=== PATIENT | male | born 1980 | race Caucasian/White ===

== ENCOUNTER → 2018-09-05 | Outpatient (CLI) | payer BC ==
[2018-09-05 07:44] LABS: Basophils # (A) 0.1 k/uL (0-0.2); Basophils % (A) 1 %; Eosinophils # (A) 0.3 k/uL (0-0.7); Eosinophils % (A) 3 %; HCT 44.4 % (39.0-53.0); HGB 15.3 gm/dL (13.0-17.5); Lymphocytes % (A) 16 %; MCH 32.4 pg (25.0-35.0); MCHC 34.5 g/dL (31.0-37.0); MCV 93.9 fL (80.0-100.0); Mean Platelet Volume 7.2; Monocytes # (A) 0.6 k/uL (0-1.0); Monocytes % (A) 5 %; Neutrophils # (A) 9.2 k/uL (1.3-7.7); Neutrophils % (A) 74 %; Platelet Count 232 k/uL (150-450); RBC 4.72 m/uL (4.30-5.90); RDW 12.6 % (11.5-15.5); WBC 12.3 k/uL (3.8-10.6)
[2018-09-05 08:58] LABS: ALT 65 U/L (21-72); AST 40 U/L (17-59); Albumin 4.8 g/dL (3.5-5.0); Alkaline Phosphatase 126 U/L (38-126); Anion Gap 8 mmol/L; Blood Urea Nitrogen 15 mg/dL (9-20); C Reactive Protein <5.0 mg/L (<10.0); Calcium 10.3 mg/dL (8.4-10.2); Carbon Dioxide 25 mmol/L (22-30); Chloride 107 mmol/L (98-107); Cholesterol 270 mg/dL (<200); Creatine Kinase 50 U/L (55-170); Glucose 100 mg/dL (74-99); HDL Cholesterol 42 mg/dL (40-60); LDL Cholesterol,Calculated 161 mg/dL (0-99); Magnesium 2.1 mg/dL (1.6-2.3); Potassium 4.6 mmol/L (3.5-5.1); Sodium 140 mmol/L (137-145); Total Bilirubin 0.7 mg/dL (0.2-1.3); Total Protein 7.5 g/dL (6.3-8.2); Triglycerides 334 mg/dL (<150)
[2018-09-05 09:12] LABS: T4, Free (Free Thyroxine) 0.94 ng/dL (0.78-2.19)
[2018-09-05 11:26] LABS: Hemoglobin A1C 4.7 % (4.0-6.0)
[2018-09-05 12:08] LABS: Erythrocyte Sedimentation Rate 6 mm/hr (0-15)
== END | disposition home or self-care (01) ==
LOC: LABWHC1 06:51
PROVIDERS: ATTEND Internal Medicine
DX: E78.5 Hyperlipidemia, unspecified (principal); I10 Essential (primary) hypertension; E55.9 Vitamin D deficiency, unspecified; D64.9 Anemia, unspecified; E11.9 Type 2 diabetes mellitus without complications
CPT/HCPCS: 36415; 80053; 80061; 82306; 82550; 83036; 83735; 84439; 84443; 85025; 85652; 86140

== ENCOUNTER → 2019-05-09 | Outpatient (CLI) | payer OTHER ==
--- NOTE | 2019-05-10 11:38 | US ---
EXAMINATION TYPE: US axilla RT DATE OF EXAM: 05/09/2019 COMPARISON: NONE CLINICAL HISTORY: R22.9 LUMP RT AXILLA. Patient states he has a hx of palpable in right right axilla with drainage. Patient states lump came back x 1 year ago, sometimes changing in size and draining. Area of palpable scanned. Superficial complex lesion seen with vascular flow - 1.5 x 2.2 x 0.7 cm. Contralateral images taken. IMPRESSION: Complex lesion noted at the site of clinical concern. Infected collection is not excluded .
== END | disposition home or self-care (01) ==
LOC: RADUSWWP 16:31
PROVIDERS: ATTEND Internal Medicine
DX: I99.8 Other disorder of circulatory system (principal)

== ENCOUNTER 2021-05-30 16:07 | Observation (INO) | payer OTHER ==
[2021-05-30] MEDS ORDERED: METOCLOPRAMIDE 5 MG/ML 2 ML VIAL IVP STA (16:46)
[2021-05-30] MEDS ORDERED: SODIUM CHLORIDE 0.9% 2,000 ML IV STA (16:46)
[2021-05-30] MEDS ORDERED: PANTOPRAZOLE 40 MG/10 ML VIAL IVP STA (16:46)
[2021-05-30 17:09] LABS: Basophils # (A) 0.1 k/uL (0-0.2); Basophils % (A) 1 %; Eosinophils # (A) 0.3 k/uL (0-0.7); Eosinophils % (A) 2 %; HCT 43.5 % (39.0-53.0); HGB 15.7 gm/dL (13.0-17.5); Lymphocytes # (A) 1.9 k/uL (1.0-4.8); Lymphocytes % (A) 17 %; MCH 32.8 pg (25.0-35.0); MCV 91.2 fL (80.0-100.0); Mean Platelet Volume 7.3; Monocytes # (A) 0.6 k/uL (0-1.0); Monocytes % (A) 5 %; Neutrophils # (A) 8.5 k/uL (1.3-7.7); Neutrophils % (A) 74 %; Platelet Count 222 k/uL (150-450); RBC 4.77 m/uL (4.30-5.90); RDW 12.4 % (11.5-15.5); WBC 11.5 k/uL (3.8-10.6)
[2021-05-30 17:23] LABS: ALT 40 U/L (4-49); AST 28 U/L (17-59); African American GFR (CKD) >90 (>60 ml/min/1.73 sqM); Albumin 4.5 g/dL (3.5-5.0); Alkaline Phosphatase 125 U/L (38-126); Amylase 68 U/L (30-110); Anion Gap 10 mmol/L; Blood Urea Nitrogen 17 mg/dL (9-20); Carbon Dioxide 26 mmol/L (22-30); Chloride 105 mmol/L (98-107); Glucose 98 mg/dL (74-99); Lipase 54 U/L (23-300); Non-African American GFR(CKD) >90 (>60 ml/min/1.73 sqM); Potassium 3.9 mmol/L (3.5-5.1); Sodium 141 mmol/L (137-145); Total Bilirubin 0.5 mg/dL (0.2-1.3); Total Protein 6.9 g/dL (6.3-8.2)
[2021-05-30 17:24] LABS: Appearance,Urine Clear (Clear); Bilirubin,Urine Negative (Negative); Blood,Urine Negative (Negative); Color,Urine Yellow; Glucose,Urine (UA) Negative (Negative); Ketones,Urine Negative (Negative); Leukocyte Esterase,Urine Negative (Negative); Nitrite,Urine Negative (Negative); Protein,Urine Trace (Negative); Specific Gravity,Urine 1.026 (1.001-1.035); Urobilinogen,Urine <2.0 mg/dL (<2.0)
--- NOTE | 2021-05-30 17:45 | ED ---
Abdominal Pain HPI - General Chief Complaint: Abdominal Pain Stated Complaint: Abd Pain Time Seen by Provider: 05/30/21 16:27 Source: patient, RN notes reviewed Mode of arrival: ambulatory Limitations: no limitations - History of Present Illness Initial Comments: This a 41-year-old male presents emergency Department with chief complaint of abdominal pain, nausea vomiting diarrhea. Patient states this is approximate day 7 of symptoms. Patient states that he has at least 6-8 episodes daily of this watery diarrhea. Patient states that has progressively gotten worse. Appears or chills he states he just feels off. No prior GI issues other than had distal esophageal stricture. Patient states he did have a dilation. No mild hematochezia denies any sick contacts no chest pain does admit to increased heartburn issues. - Related Data Allergies Allergy/AdvReac Type Severity Reaction Status Date / Time No Known Allergies Allergy Verified 05/30/21 16:25 Review of Systems ROS Statement: Those systems with pertinent positive or pertinent negative responses have been documented in the HPI. ROS Other: All systems not noted in ROS Statement are negative. Past Medical History Past Medical History: GERD/Reflux History of Any Multi-Drug Resistant Organisms: None Reported Past Surgical History: No Surgical Hx Reported Past Psychological History: No Psychological Hx Reported Smoking Status: Current every day smoker Past Alcohol Use History: Daily Past Drug Use History: Marijuana General Exam Limitations: no limitations General appearance: alert, in no apparent distress Head exam: Present: atraumatic, normocephalic, normal inspection Neck exam: Present: normal inspection. Absent: tenderness, meningismus, lymphadenopathy Respiratory exam: Present: normal lung sounds bilaterally. Absent: respiratory distress, wheezes, rales, rhonchi, stridor Cardiovascular Exam: Present: regular rate, normal rhythm, normal heart sounds. Absent: systolic murmur, diastolic murmur, rubs, gallop, clicks GI/Abdominal exam: Present: soft, tenderness, normal bowel sounds. Absent: distended, guarding, rebound, rigid Back exam: Absent: CVA tenderness (R), CVA tenderness (L) Neurological exam: Present: alert Skin exam: Present: warm, dry, intact, normal color. Absent: rash Course Vital Signs 05/30/21 16:21 Temperature 99.0 F Pulse Rate 74 Respiratory 20 Rate Blood Pressure 136/87 O2 Sat by Pulse 98 Oximetry Medical Decision Making - Medical Decision Making CT shows evidence of acute appendicitis. Patient CT shows evidence of possible rupture case discussed with Dr. Graham patient be admitted on IV antibiotics And by mouth. - Lab Data Result diagrams: 05/30/21 16:56 05/30/21 16:56 Lab Results 05/30/21 05/30/21 05/30/21 Range/Units 16:56 16:56 16:56 WBC 11.5 H (3.8-10.6) k/uL RBC 4.77 (4.30-5.90) m/uL Hgb 15.7 (13.0-17.5) gm/dL Hct 43.5 (39.0-53.0) % MCV 91.2 (80.0-100.0) fL MCH 32.8 (25.0-35.0) pg MCHC 36.0 (31.0-37.0) g/dL RDW 12.4 (11.5-15.5) % Plt Count 222 (150-450) k/uL MPV 7.3 Neutrophils % 74 % Lymphocytes % 17 % Monocytes % 5 % Eosinophils % 2 % Basophils % 1 % Neutrophils # 8.5 H (1.3-7.7) k/uL Lymphocytes # 1.9 (1.0-4.8) k/uL Monocytes # 0.6 (0-1.0) k/uL Eosinophils # 0.3 (0-0.7) k/uL Basophils # 0.1 (0-0.2) k/uL Sodium 141 (137-145) mmol/L Potassium 3.9 (3.5-5.1) mmol/L Chloride 105 (98-107) mmol/L Carbon Dioxide 26 (22-30) mmol/L Anion Gap 10 mmol/L BUN 17 (9-20) mg/dL Creatinine 0.75 (0.66-1.25) mg/dL Est GFR (CKD-EPI)AfAm >90 (>60 ml/min/1.73 sqM) Est GFR (CKD-EPI)NonAf >90 (>60 ml/min/1.73 sqM) Glucose 98 (74-99) mg/dL Plasma Lactic Acid Matthew (0.7-2.0) mmol/L Calcium 10.0 (8.4-10.2) mg/dL Total Bilirubin 0.5 (0.2-1.3) mg/dL AST 28 (17-59) U/L ALT 40 (4-49) U/L Alkaline Phosphatase 125 (38-126) U/L Total Protein 6.9 (6.3-8.2) g/dL Albumin 4.5 (3.5-5.0) g/dL Amylase 68 (30-110) U/L Lipase 54 (23-300) U/L Urine Color Yellow Urine Appearance Clear (Clear) Urine pH 5.0 (5.0-8.0) Ur Specific [place] 1.026 (1.001-1.035) Urine Protein Trace H (Negative) Urine Glucose (UA) Negative (Negative) Urine Ketones Negative (Negative) Urine Blood Negative (Negative) Urine Nitrite Negative (Negative) Urine Bilirubin Negative (Negative) Urine Urobilinogen <2.0 (<2.0) mg/dL Ur Leukocyte Esterase Negative (Negative) 05/30/21 Range/Units 16:56 WBC (3.8-10.6) k/uL RBC (4.30-5.90) m/uL Hgb (13.0-17.5) gm/dL Hct (39.0-53.0) % MCV (80.0-100.0) fL MCH (25.0-35.0) pg MCHC (31.0-37.0) g/dL RDW (11.5-15.5) % Plt Count (150-450) k/uL MPV Neutrophils % % Lymphocytes % % Monocytes % % Eosinophils % % Basophils % % Neutrophils # (1.3-7.7) k/uL Lymphocytes # (1.0-4.8) k/uL Monocytes # (0-1.0) k/uL Eosinophils # (0-0.7) k/uL Basophils # (0-0.2) k/uL Sodium (137-145) mmol/L Potassium (3.5-5.1) mmol/L Chloride (98-107) mmol/L Carbon Dioxide (22-30) mmol/L Anion Gap mmol/L BUN (9-20) mg/dL Creatinine (0.66-1.25) mg/dL Est GFR (CKD-EPI)AfAm (>60 ml/min/1.73 sqM) Est GFR (CKD-EPI)NonAf (>60 ml/min/1.73 sqM) Glucose (74-99) mg/dL Plasma Lactic Acid Matthew 0.9 (0.7-2.0) mmol/L Calcium (8.4-10.2) mg/dL Total Bilirubin (0.2-1.3) mg/dL AST (17-59) U/L ALT (4-49) U/L Alkaline Phosphatase (38-126) U/L Total Protein (6.3-8.2) g/dL Albumin (3.5-5.0) g/dL Amylase (30-110) U/L Lipase (23-300) U/L Urine Color Urine Appearance (Clear) Urine pH (5.0-8.0) Ur Specific [place] (1.001-1.035) Urine Protein (Negative) Urine Glucose (UA) (Negative) Urine Ketones (Negative) Urine Blood (Negative) Urine Nitrite (Negative) Urine Bilirubin (Negative) Urine Urobilinogen (<2.0) mg/dL Ur Leukocyte Esterase (Negative) Disposition Clinical Impression: Acute appendicitis Disposition: ADMITTED IP TO THIS HOSP Condition: Fair Referrals: Carlos Smyth MD [Primary Care Provider] - 1-2 days
--- NOTE | 2021-05-30 17:48 | CT ---
EXAMINATION TYPE: CT abdomen pelvis w con DATE OF EXAM: 05/30/2021 COMPARISON: None HISTORY: Abdominal pain. CT DLP: 861.4 mGycm Automated exposure control for dose reduction was used. CONTRAST: Performed with IV Contrast, patient injected with 100ml mL of Isovue 300. Images obtained from the diaphragm to the floor the pelvis with IV contrast. The lung bases are clear. There is no pleural effusion. Heart size is normal. There is no pericardial effusion. Liver spleen stomach pancreas gallbladder appear normal. The bile ducts are not dilated. There is no adrenal mass. Kidneys show satisfactory contrast opacification. There is no hydronephrosi s. The ureters are not dilated. The bladder distends smoothly. There is some free fluid in the pelvis . This has low attenuation. There is no evidence of a pelvic mass. Appendix is medial and measures up to 9 mm. There is some minimal stranding adjacent to the appendix. There is no evidence of free air. There is no sign of a bowel obstruction. The lumbar vertebra have f airly normal alignment. Posterior elements are intact. There is no compression fracture. Disc spaces are normal. The bony pelvis is intact. The hip joints are intact. There is no hip dysplasia. IMPRESSION: There is some low density free fluid in the pelvis. There is also a mildly thickened appendix and min imal stranding adjacent to the appendix. This is highly suspicious for appendicitis. Rupture is possi ble.
[2021-05-30] MEDS ORDERED: PIPERACILLIN-TAZOBACTAM 3.375 GM in SODIUM CHLORIDE 0.9% 100 ML IVPB STA (17:56)
[2021-05-30] MEDS ORDERED: NALOXONE 0.4 MG/ML 1 ML VIAL IV PRN (18:22)
[2021-05-30] MEDS: HYDROmorphone 0.5 MG/0.5 ML SYRINGE IVP PRN ×2 (18:38→21:45)
[2021-05-30] MEDS: SODIUM CHLORIDE 0.9% 1,000 ML IV SCH ×2 (18:39→20:54)
[2021-05-30] MEDS ORDERED: NICOTINE 21MG/24HR PATCH TRANSDERM STA (18:54)
[2021-05-30] MEDS: PIPERACILLIN-TAZOBACTAM 3.375 GM in SODIUM CHLORIDE 0.9% 100 ML IVPB SCH (23:36)
[2021-05-31] MEDS: HYDROmorphone 0.5 MG/0.5 ML SYRINGE IVP PRN ×7 (01:38→22:59)
--- NOTE | 2021-05-31 08:52 | P.GSHP ---
History of Present Illness H&P Date: 05/31/21 CHIEF COMPLAINT: Right lower quadrant abdominal pain HISTORY OF PRESENT ILLNESS: This is a 41-year-old male with a known history of GERD, nicotine dependence and daily alcohol use. Patient presents to the hospital with complaints of right lower quadrant abdominal pain for the past 7 days. He's also had nausea vomiting and diarrhea. He's been having chills. He denies any fever. Patient has history of a son who had appendicitis with a noncancerous growth removed with appendix. Computed tomography scan abdomen and pelvis shows mildly thickened appendix and minimal stranding adjacent to the appendix. Highly suspicious for appendicitis. Rupture is possible. PAST MEDICAL HISTORY: See list. PAST SURGICAL HISTORY: See list. MEDICATIONS: See list. ALLERGIES: See list. SOCIAL HISTORY: No illicit drug use. Patient states he drinks about 2-3 beers daily. REVIEW OF SYSTEMS: CONSTITUTIONAL: Denies fever or chills. HEENT: Denies blurred vision, vision changes, or eye pain. Denies hemoptysis CARDIOVASCULAR: Denies chest pain or pressure. RESPIRATORY: No shortness of breath. GASTROINTESTINAL: See HPI for pertinent findings HEMATOLOGIC: Denies bleeding disorders. GENITOURINARY: Denies any blood in urine or increased urinary frequency. SKIN: Denies pruitis. Denies rash. PHYSICAL EXAM: VITAL SIGNS: Reviewed GENERAL: Well-developed in no acute distress. HEENT: No sclera icterus. Extraocular movements grossly intact. Moist buccal mucosa. Head is atraumatic, normocephalic. No nasal drainage. ABDOMEN: Soft. mildly distended. Tenderness with palpation to right lower quadrant. NEUROLOGIC: Alert and oriented. Cranial nerves II through XII grossly intact. LABORATORY DATA: WBC 11.5 HEMOGLOBIN 15.7 PLATELETS 222 SODIUM 141 POTASSIUM 3.9 CREATININE 0.75D GAS AT 0 POINT LFTS AND LIPASE NORMAL IMAGING: STATED ABOVE ASSESSMENT: 1. Acute appendicitis PLAN: -Patient scheduled for laparoscopic appendectomy today with Dr. Graham -Keep patient nothing by mouth -Continue IV fluids -Continue IV antibiotics -Continue pain medication as needed Physician Mortgage Closer note has been reviewed by physician. Signing provider agrees with the documented findings, assessment, and plan of care. Past Medical History Past Medical History: GERD/Reflux History of Any Multi-Drug Resistant Organisms: None Reported Past Surgical History: No Surgical Hx Reported Additional Past Surgical History / Comment(s): Esophageal expansion Past Anesthesia/Blood Transfusion Reactions: No Reported Reaction Past Psychological History: No Psychological Hx Reported Smoking Status: Current every day smoker Past Alcohol Use History: Daily Past Drug Use History: Marijuana Medications and Allergies Home Medications Medication Instructions Recorded Confirmed Type Acetaminophen Tab [Tylenol] 650 mg PO DAILY PRN 05/30/21 05/30/21 History Calcium Carb/Magnesium Hydrox 3 tab PO ONCE PRN 05/30/21 05/30/21 History [Rolaids Chewable Tablet] Allergies Allergy/AdvReac Type Severity Reaction Status Date / Time No Known Allergies Allergy Verified 05/30/21 19:00 Surgical - Exam Vital Signs Temp Pulse Resp BP Pulse Ox 99.0 F 74 20 136/87 98 05/30/21 16:21 05/30/21 16:21 05/30/21 16:21 05/30/21 16:21 05/30/21 16:21 Results - Labs 05/30/21 16:56 05/30/21 16:56 Abnormal Lab Results - Last 24 Hours (Table) 05/30/21 05/30/21 Range/Units 16:56 16:56 WBC 11.5 H (3.8-10.6) k/uL Neutrophils # 8.5 H (1.3-7.7) k/uL Urine Protein Trace H (Negative) Diabetes panel 05/30/21 Range/Units 16:56 Sodium 141 (137-145) mmol/L Potassium 3.9 (3.5-5.1) mmol/L Chloride 105 (98-107) mmol/L Carbon Dioxide 26 (22-30) mmol/L BUN 17 (9-20) mg/dL Creatinine 0.75 (0.66-1.25) mg/dL Glucose 98 (74-99) mg/dL Calcium 10.0 (8.4-10.2) mg/dL AST 28 (17-59) U/L ALT 40 (4-49) U/L Alkaline Phosphatase 125 (38-126) U/L Total Protein 6.9 (6.3-8.2) g/dL Albumin 4.5 (3.5-5.0) g/dL Calcium panel 05/30/21 Range/Units 16:56 Calcium 10.0 (8.4-10.2) mg/dL Albumin 4.5 (3.5-5.0) g/dL Pituitary panel 05/30/21 Range/Units 16:56 Sodium 141 (137-145) mmol/L Potassium 3.9 (3.5-5.1) mmol/L Chloride 105 (98-107) mmol/L Carbon Dioxide 26 (22-30) mmol/L BUN 17 (9-20) mg/dL Creatinine 0.75 (0.66-1.25) mg/dL Glucose 98 (74-99) mg/dL Calcium 10.0 (8.4-10.2) mg/dL Adrenal panel 05/30/21 Range/Units 16:56 Sodium 141 (137-145) mmol/L Potassium 3.9 (3.5-5.1) mmol/L Chloride 105 (98-107) mmol/L Carbon Dioxide 26 (22-30) mmol/L BUN 17 (9-20) mg/dL Creatinine 0.75 (0.66-1.25) mg/dL Glucose 98 (74-99) mg/dL Calcium 10.0 (8.4-10.2) mg/dL Total Bilirubin 0.5 (0.2-1.3) mg/dL AST 28 (17-59) U/L ALT 40 (4-49) U/L Alkaline Phosphatase 125 (38-126) U/L Total Protein 6.9 (6.3-8.2) g/dL Albumin 4.5 (3.5-5.0) g/dL
[2021-05-31] MEDS: PIPERACILLIN-TAZOBACTAM 3.375 GM in SODIUM CHLORIDE 0.9% 100 ML IVPB SCH ×3 (08:58→23:44)
[2021-05-31] MEDS ORDERED: IV FLUID CONTINUATION 1,000 ML IV ONE ×2 (09:37)
[2021-05-31] MEDS ORDERED: ONDANSETRON 4 MG/2 ML VIAL ONE (09:54)
[2021-05-31] MEDS ORDERED: HEPARIN SODIUM,PORCINE/PF 5,000 UNIT/0.5 ML SYRINGE SQ ONE (09:56)
[2021-05-31] MEDS ORDERED: DEXAMETHASONE SOD PHOSPHATE 4 MG/ML 1 ML VIAL IV ONE (10:25)
[2021-05-31] MEDS ORDERED: HEPARIN SODIUM,PORCINE 5,000 UNIT/ML 1 ML VIAL SQ ONE (10:25)
[2021-05-31] MEDS ORDERED: ONDANSETRON 4 MG/2 ML VIAL IVP ONE (10:25)
[2021-05-31 10:51] VITALS: BMI 24.4
[2021-05-31] MEDS ORDERED: BUPIVACAINE (PF) 0.5% 30 ML VIAL SQ ONE (10:57)
[2021-05-31] MEDS ORDERED: LACTATED RINGERS 1,000 ML IV ONE (10:58)
--- NOTE | 2021-05-31 11:22 | P.OP ---
Date of Procedure: 05/31/21 Preoperative Diagnosis: Acute appendicitis Postoperative Diagnosis: Acute appendicitis Procedure(s) Performed: Laparoscopic appendectomy Anesthesia: RIA Surgeon: Samuel Graham Estimated Blood Loss (ml): 5 Pathology: other (Appendix) Condition: stable Disposition: PACU Description of Procedure: HThe patient's placed on the operating table in the supine position. The patient received general anesthesia. The abdomen was prepped and draped in the usual sterile fashion. The skin was anesthetized 1% local Xylocaine at the trocar sites. Using an 11 blade the skin was incised at the umbilicus. The umbilicus was grasped with a Florencio clamp and then a Veress needle was placed into the peritoneal cavity. Position of the Veress needle was confirmed with positive drop test. After adequate insufflation a 5 mm trocar was placed into the peritoneal cavity. The abdomen was further insufflated. And then the laparoscope was placed in the peritoneal cavity. Next a 5 mm trocar was placed in the midline suprapubic position. And then a 10 mm trocar was placed in the midline epigastric position. The patient was rotated with the right side up and in Trendelenburg. The appendix was visualized. The appendix appeared to be inflamed. The appendix was grasped and then using the Harmonic scissors the mesoappendix was divided. A PDS Endoloop was then placed around the base of the appendix. And then the appendix was divided using Harmonic scissors. The appendix was placed into an Endo Catch and brought out through the 10 mm trocar site. The abdomen was irrigated. There is no bleeding seen. The trochars withdrawn. The skin was closed interrupted 3-0 Monocryl suture. Dermabond dressing was applied. Patient was sent to recovery room in stable condition.
[2021-05-31] MEDS ORDERED: HYDROmorphone 0.5 MG/0.5 ML SYRINGE IVP ONE ×2 (11:34→11:42)
--- NOTE | 2021-05-31 13:15 | P.CONS ---
History of Present Illness - Reason for Consult Consult date: 05/31/21 Medical management - Chief Complaint Nausea vomiting right lower quadrant with the underlying vague abdominal pa - History of Present Illness 41 years old admitted to the hospital through the emergency room. Patient presented with nausea vomiting diarrhea and the right lower quadrant pain and associated with vague abdominal pain The symptoms started 4 days ago and the patient thought that this could be a bug, and also he had dyspepsia. And diarrhea and the abdominal pain, when the symptoms not resolved he came to the emergency room yesterday, found that he had leukocytosis as well as computed tomography scan indicating acute appendicitis. Dr. Bob rausch was consulted the surgeon and he took him to the OR today and he did laparoscopic cholecystectomy. Postoperative requested consultation by the attending. Past medical history 41 years old he has no medical problem in the past except to that he had a right axillary lymph node and possibility of vaginitis otherwise he has no medication. ALLERGY is unknown Patient planning for getting next month's . No children. He is employed electrician outside. He smokes. Pack per day. Computed tomography scan of the abdomen done in the ER indicating mildly thickened appendix and minimal stranding adjacent to the appendix highly suspicious of appendicitis rupture is possible. In the past: Patient has heard that tinnitus suppurative of the right axilla. And he was treated with clindamycin 300 mg 2 capsule every 8 hours. Review of system Patient has no symptoms at this time postoperative as he underwent laparoscopic appendectomy. Prior to that he has no symptoms except for the episode of inflammation of the appendix No lung disease no GI symptoms no symptoms. Except for that he had had vaginitis of the right axilla with lymph node. On exam postoperative: Patient is conscious alert oriented 3 able to communicate freely he had received already Zosyn IV piggyback every 8 hour 3.375. And he has also Lovenox 40 mg daily. The head was normocephalic and atraumatic pupil was equal reactive oropharynx was negative natural teeth normal hearing neck was supple no JVD no thyromegaly no lymphadenopathy trachea midline. Chest was clear to auscultation percussion Heart was PMI in the fifth intercostal space regular sinus rhythm Abdomen is soft and he has the tenderness postoperative for laparoscopic cholecystectomy with the city sites for the entrance of the prolapse covered with dressing. Extremities no edema and positive pulses. Vital signs stable with a heart rate 62 bpm blood pressure 117/78 and mean 91 with the oxygen saturation 96%. Assessment: #1 status post laparoscopic appendectomy. Today on 05/31/2021. #2 history of right anxiety hidradenitis. #3 no evidence of hypertension or diabetes mellitus and patient stable general condition Plan patient stable general condition postoperative monitoring for surgery and subsequently going home and follow-up with me in the office in one week. Thank you for the consult Past Medical History Past Medical History: GERD/Reflux History of Any Multi-Drug Resistant Organisms: None Reported Past Surgical History: No Surgical Hx Reported Additional Past Surgical History / Comment(s): Esophageal expansion Past Anesthesia/Blood Transfusion Reactions: No Reported Reaction Past Psychological History: No Psychological Hx Reported Smoking Status: Current every day smoker Past Alcohol Use History: Daily Past Drug Use History: Marijuana Medications and Allergies Home Medications Medication Instructions Recorded Confirmed Type Acetaminophen Tab [Tylenol] 650 mg PO DAILY PRN 05/30/21 05/30/21 History Calcium Carb/Magnesium Hydrox 3 tab PO ONCE PRN 05/30/21 05/30/21 History [Rolaids Chewable Tablet] Allergies Allergy/AdvReac Type Severity Reaction Status Date / Time No Known Allergies Allergy Verified 05/30/21 19:00 Physical Exam Vitals: Vital Signs Temp Pulse Pulse Resp BP BP BP 05/31/21 12:30 59 L 122/79 122/79 05/31/21 12:16 48 L 16 117/76 05/31/21 12:01 50 L 16 125/76 05/31/21 11:46 51 L 16 139/81 05/31/21 11:30 49 L 16 123/87 05/31/21 11:14 97.7 F 57 L 16 130/80 05/31/21 09:39 97.8 F 51 L 16 118/78 05/31/21 08:00 51 L 16 05/31/21 07:00 98.1 F 72 16 113/78 05/31/21 01:24 98.4 F 60 16 116/74 05/30/21 21:21 98.6 F 60 16 122/74 05/30/21 18:43 61 16 116/80 05/30/21 16:21 99.0 F 74 20 136/87 Pulse Ox 05/31/21 12:30 97 05/31/21 12:16 95 05/31/21 12:01 95 05/31/21 11:46 96 05/31/21 11:30 100 05/31/21 11:14 98 05/31/21 09:39 96 05/31/21 08:00 05/31/21 07:00 97 05/31/21 01:24 98 05/30/21 21:21 99 05/30/21 18:43 99 05/30/21 16:21 98 Intake and Output 05/30/21 05/31/21 05/31/21 22:59 06:59 14:59 Intake Total 1100 Output Total 10 Balance 1090 Intake: IV 1100 Output: Estimated Blood Loss 10 Other: # Voids 1 3 Weight 81.647 kg 81.647 kg Results CBC & Chem 7: 05/30/21 16:56 05/30/21 16:56 Labs: Abnormal Lab Results - Last 24 Hours (Table) 05/30/21 05/30/21 Range/Units 16:56 16:56 WBC 11.5 H (3.8-10.6) k/uL Neutrophils # 8.5 H (1.3-7.7) k/uL Urine Protein Trace H (Negative)
[2021-05-31] MEDS: SODIUM CHLORIDE 0.9% 1,000 ML IV SCH ×2 (13:54→20:00)
[2021-05-31] MEDS ORDERED: NICOTINE 21MG/24HR PATCH TRANSDERM STA (16:50)
[2021-05-31] MEDS: HYDROcodone/APAP 5-325MG 1 EACH TAB PO PRN (23:44)
[2021-06-01] MEDS: HYDROmorphone 0.5 MG/0.5 ML SYRINGE IVP PRN ×3 (01:49→08:03)
[2021-06-01 01:58] VITALS: TEMP 98.4
[2021-06-01] MEDS: HYDROcodone/APAP 5-325MG 1 EACH TAB PO PRN ×2 (06:02→11:05)
[2021-06-01] MEDS: SODIUM CHLORIDE 0.9% 1,000 ML IV SCH (06:04)
[2021-06-01 06:57] VITALS: BP 116/69; PULSE 85; RESP 18
[2021-06-01] MEDS: PIPERACILLIN-TAZOBACTAM 3.375 GM in SODIUM CHLORIDE 0.9% 100 ML IVPB SCH (08:03)
[2021-06-01 08:36] LABS: Basophils % (A) 0 %; Eosinophils % (A) 0 %; HCT 37.7 % (39.0-53.0); HGB 13.1 gm/dL (13.0-17.5); Lymphocytes # (A) 1.5 k/uL (1.0-4.8); Lymphocytes % (A) 11 %; MCH 32.4 pg (25.0-35.0); MCHC 34.8 g/dL (31.0-37.0); Mean Platelet Volume 7.6; Monocytes # (A) 0.6 k/uL (0-1.0); Monocytes % (A) 4 %; Neutrophils # (A) 11.1 k/uL (1.3-7.7); Neutrophils % (A) 83 %; Platelet Count 212 k/uL (150-450); RBC 4.05 m/uL (4.30-5.90); RDW 12.4 % (11.5-15.5); WBC 13.4 k/uL (3.8-10.6)
[2021-06-01] MEDS ORDERED: ENOXAPARIN 40 MG/0.4 ML SYRINGE SQ SCH (09:00)
--- NOTE | 2021-06-01 11:44 | P.DS ---
Providers Date of admission: 05/30/21 18:33 Expected date of discharge: 06/01/21 Attending physician: Samuel Graham Consults: 05/31/21 11:22 Consult Physician Routine Consulting Provider: Carlos Smyth Consult Reason/Comments: Medical management Do you want consulting provider notified?: Yes Primary care physician: Carlos Smyth Hospital Course: Discharge diagnosis 1. Acute appendicitis status post laparoscopic appendectomy 2. Leukocytosis Hospital course This is a 41-year-old male with a known history of GERD, nicotine dependence and daily alcohol use. Patient presents to the hospital with complaints of right lower quadrant abdominal pain for the past 7 days. He's also had nausea vomiting and diarrhea. Computed tomography scan abdomen and pelvis shows mildly thickened appendix and minimal stranding adjacent to the appendix. Highly suspicious for appendicitis. Rupture is possible. Patient is status post laparoscopic appendectomy. Patient tolerated surgery well. He is tolerating diet. His pain is controlled. He is having flatus. He has been up and ambulating. Afebrile. White count is up at 13.4 and he'll be discharged home with antibiotics. Incision sites minimal dried blood noted at incision sites otherwise clean dry and intact. Please refer to chart for any further details. Physician Sales Professional Bilingual note has been reviewed by physician. Signing provider agrees with the documented findings, assessment, and plan of care. Patient Condition at Discharge: Stable Plan - Discharge Summary Discharge Rx Participant: No New Discharge Prescriptions: New Amoxicillin/Potassium Clav [Augmentin 875-125 Tablet] 1 tab PO Q12HR 7 Days #14 tab HYDROcodone/APAP 5-325MG [Rienzi 5-325] 1 tab PO Q6HR PRN 3 Days #12 tab PRN Reason: Pain Continue Calcium Carb/Magnesium Hydrox [Rolaids Chewable Tablet] 3 tab PO ONCE PRN PRN Reason: Gi Upset Discontinued Acetaminophen Tab [Tylenol] 650 mg PO DAILY PRN PRN Reason: Pain Discharge Medication List Calcium Carb/Magnesium Hydrox [Rolaids Chewable Tablet] 3 tab PO ONCE PRN 05/30/21 [History] Amoxicillin/Potassium Clav [Augmentin 875-125 Tablet] 1 tab PO Q12HR 7 Days #14 tab 06/01/21 [Rx] HYDROcodone/APAP 5-325MG [Rienzi 5-325] 1 tab PO Q6HR PRN 3 Days #12 tab 06/01/21 [Rx] Follow up Appointment(s)/Referral(s): Carlos Smyth MD [Primary Care Provider] - 1-2 days Samuel Graham MD [STAFF PHYSICIAN] - 1 Week Activity/Diet/Wound Care/Special Instructions: No driving while taking Rienzi No lifting over 10 pounds You may shower. No soaking or tub baths for 2 weeks Very light activity until you are reevaluated at your follow up appointment with your surgeon Discharge Disposition: HOME SELF-CARE
== END 2021-06-01 12:58 | disposition home or self-care (01) ==
LOC: EC 16:07 → 6NMEDSUR 18:33
PROVIDERS: ADMIT Surgery; ATTEND Surgery
DX: K35.80 Unspecified acute appendicitis (principal); K21.9 Gastro-esophageal reflux disease without esophagitis; K22.2 Esophageal obstruction; L73.2 Hidradenitis suppurativa; F41.9 Anxiety disorder, unspecified; F17.210 Nicotine dependence, cigarettes, uncomplicated; Z72.89 Other problems related to lifestyle; Z83.79 Family history of other diseases of the digestive system
CPT/HCPCS: 96376 ×2; 96361; 96374; 96375; 99285; 36415; 88304; 80053; 82150; 83605; 83690; 85025 ×2; 81003; 87040; 74177; 44970; G0378 ×3; S4990 ×2; J2543 ×3; J1644; J1100; J2765; J2405; J1650; C9113; J1170 ×3; Q9967